=== PATIENT | male | born 1965 | race Caucasian/White ===

== ENCOUNTER 2018-06-01 07:10 | Day surgery (SDC) | payer OTHER, MEDICAID ==
[~2018-06-01] VITALS: Ht 170.2 cm; Wt 74.8 kg
[2018-06-01] MEDS ORDERED: fentaNYL CITRATE/PF 100 MCG/2 ML AMP IVP ONE (08:00)
[2018-06-01] MEDS ORDERED: LR 1,000 ML IV.SOLN IV ONE (08:00)
[2018-06-01] MEDS ORDERED: PROPOFOL 200MG/ 20ML VIAL (DIPRIVAN) IV ONE (08:00)
[2018-06-01] MEDS ORDERED: MIDAZOLAM HCL 5 MG/5 ML VIAL IVP ONE (08:00)
[2018-06-01] MEDS ORDERED: LR 1,000 ML IV SCH (08:36)
[2018-06-01] MEDS ORDERED: MEPERIDINE HCL/PF 25 MG/ML DISP.SYRIN IVP PRN (08:45)
[2018-06-01] MEDS ORDERED: HYDROmorphone 2 MG/ML VIAL IVP PRN ×2 (08:45)
[2018-06-01] MEDS ORDERED: HYDROmorphone 1 MG INJ. 1 MG/ML AMPUL IVP PRN (08:45)
[2018-06-01 09:34] VITALS: BP_SYST 120
== END 2018-06-01 10:28 | disposition home or self-care (01) ==
LOC: SMU 07:10 → SDS 07:10
PROVIDERS: ATTEND Internal Medicine Gastroenterology
DX: K31.7 Polyp of stomach and duodenum (principal); K21.0 Gastro-esophageal reflux disease with esophagitis; K29.50 Unspecified chronic gastritis without bleeding; G43.909 Migraine, unspecified, not intractable, without status migrainosus; K58.9 Irritable bowel syndrome, unspecified; Z79.899 Other long term (current) drug therapy; E78.5 Hyperlipidemia, unspecified; Z86.010 Personal history of colon polyps
CPT/HCPCS: 36415; 43239; 87081; 88305; 88312; 88313; J2250; J2704; J3010; J7120